=== PATIENT | female | born 1950 | race Caucasian/White ===

== ENCOUNTER 2017-05-20 12:23 | Emergency (ER) | payer OTHER ==
[~2017-05-20] VITALS: Ht 157.5 cm; Wt 43.5 kg
[~2017-05-20 12:23] MED LIST: SYNTHROID88 MCG
== END 2017-05-20 13:53 | disposition home or self-care (01) ==
LOC: ER 12:23
DX: R19.7 Diarrhea, unspecified (principal)

== ENCOUNTER 2019-11-23 18:32 | Emergency (ER) | payer OTHER ==
[~2019-11-23] VITALS: Ht 154.9 cm; Wt 44.9 kg
== END 2019-11-24 11:59 | disposition home or self-care (01) ==
LOC: ER 18:32
DX: D64.89 Other specified anemias (principal); N39.0 Urinary tract infection, site not specified